=== PATIENT | male | born 1980 | race Two or more races ===

== ENCOUNTER 2021-02-08 15:34 | Emergency (ER) | payer MEDICAID, OTHER ==
[~2021-02-08] VITALS: Ht 167.6 cm; Wt 104.3 kg
[2021-02-08 16:36] LABS: Basophils # (auto) 0.1 10 ^3/uL (0-0.2); Basophils % (auto) 0.9 % (0.0-2.0); Eosinophils # (auto) 0.1 10 ^3/uL (0-0.8); Eosinophils % (auto) 0.8 % (0.0-7.0); Hematocrit 45.5 % (41.0-53.0); Hemoglobin 15.3 g/dL (13.5-17.5); Lymphocytes # (auto) 1.9 10 ^3/uL (0.4-5.4); Lymphocytes % (auto) 18.3 % (10.0-50.0); Mean Corpuscular Hemoglobin 28.2 pg (28.0-32.0); Mean Corpuscular Hgb Conc. 33.6 g/dL (32.0-36.0); Monocytes # (auto) 0.6 10 ^3/uL (0-1.3); Monocytes % (auto) 6.3 % (0.0-12.0); Neutrophils # (auto) 7.6 10 ^3/uL (1.6-8.6); Neutrophils % (auto) 73.7 % (37.0-80.0); Nucleated Red Blood Cells % 0.1 %; Red Blood Cells 5.42 10^6/uL (4.5-5.90); Red Cell Distribution Width 14.2 % (11.8-14.3); White Blood Cell 10.3 10^3/uL (4.4-10.8)
[2021-02-08 16:55] LABS: Calcium 8.8 mg/dL (8.5-10.1); Potassium 3.5 mmol/L (3.5-5.1)
[2021-02-08 17:31] VITALS: BP 214/141
== END 2021-02-08 17:30 | disposition home or self-care (01) ==
LOC: ER 15:34
DX: I10 Essential (primary) hypertension (principal)
CPT/HCPCS: 36415; 71046; 80048; 85025; 93005